=== PATIENT | male | born 1950 | race Caucasian/White ===

== ENCOUNTER 2018-05-26 15:04 | Outpatient (CLI) | payer MEDICARE, BC ==
--- NOTE | 2018-05-26 18:21 | MRI ---
MRI LEFT SHOULDER: 05/26/2018 PROVIDED CLINICAL HISTORY: Left shoulder pain. FINDINGS: There is partial-thickness undersurface tearing involving the anterior distal fibers of the infraspin atus tendon at the footplate. The components of the rotator cuff appear otherwise intact. The longh ead biceps tendon appears intact and normally located. There is conspicuous flattening of the articular portions of the humeral head and glenoid. There is extensive full-thickness articular cartilage absence involving essentially all the glenohumeral artic ular surface. There is a moderate glenohumeral joint effusion. There are multiple small intraarticul ar bodies present, likely reflecting secondary synovial chondromatosis. The glenoid labrum demonstra nikhil extensive degenerative nondisplaced tearing. There is greater than physiologic subacromial/subdeltoid bursal fluid. Acromioclavicular joint osteo arthrosis is noted without significant mass effect upon the subjacent supraspinatus. Rotator cuff mu scular volume appears preserved. No focal concerning regional marrow or muscular signal abnormality is evident. Subcortical cyst-like changes are seen within the anterior greater tuberosity. IMPRESSION: 1. 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 2. Low-grade partial-thickness undersurface tear involving the anterior distal infraspinatus tendon at the footplate. 3. Acromioclavicular joint osteoarthrosis. POS: OFF
== END 2018-05-26 15:05 | disposition home or self-care (01) ==
LOC: MRI 15:04
PROVIDERS: ATTEND Physician Assistant
DX: M25.512 Pain in left shoulder (principal); M19.012 Primary osteoarthritis, left shoulder; M25.412 Effusion, left shoulder; D48.0 Neoplasm of uncertain behavior of bone and articular cartilage; S46.912A Strain of unspecified muscle, fascia and tendon at shoulder and upper arm level, left arm, initial encounter

== ENCOUNTER 2018-06-23 11:11 | Outpatient (CLI) | payer MEDICARE, BC ==
--- NOTE | 2018-06-23 16:43 | RAD ---
TWO VIEWS CHEST: Date: 06-23-18 History: Pre-operative evaluation. Comparison: 07-16-12 FINDINGS: There is partial visualization of a right humeral prosthesis. Cardiac silhouette and pulmonary vascul ature are within normal limits. Linear scarring is again present at each lung base with what appears to be calcified granuloma over the right lung base also seen on prior study. The lungs are otherwise clear. Degenerative changes are present in the spine. Vascular calcifications are seen in the thoraci c aorta. IMPRESSION: 1. Mild bibasilar scarring, no acute cardiopulmonary process. POS: H
== END 2018-06-23 11:12 | disposition home or self-care (01) ==
LOC: RAD 11:11
PROVIDERS: ATTEND Family Medicine
DX: Z01.818 Encounter for other preprocedural examination (principal); J98.4 Other disorders of lung; I10 Essential (primary) hypertension; R35.1 Nocturia
CPT/HCPCS: 36415; 71046; 80053; 80061; 83036; 84443; 84466; 85025; 86803; G0103

== ENCOUNTER 2018-07-17 11:01 | Outpatient (CLI) | payer MEDICARE, BC ==
[2018-07-17 16:24] LABS: #Eosinphils 0.3 thou/uL (0.0-0.7); #Lymphocytes 1.6 thou/uL (1.20-3.40); #Monocytes 0.7 thou/uL (0.11-0.59); #Neutrophils 4.9 thou/uL (1.40-6.50); %Basophils 0.4 % (0.0-1.0); %Eosinophils 3.8 % (0.0-10.0); %Monocytes 9.3 % (0.0-10.0); %Neutrophils 65.6 % (42.0-75.0); Hemoglobin 16.6 g/dL (14.0-18.0); Mean Corpuscular HGB CONC 33.6 g/dL (32.0-36.0); Mean Corpuscular Hemoglobin 30.4 pg (27.0-31.0); Mean Corpuscular Volume 90.5 fL (78.0-98.0); Mean Platelet Volume 7.8 fL (7.4-10.4); Platelet Count 183 thou/uL (130-400); RBC Distribution Width 12.4 % (11.5-14.5); Red Blood Cell (RBC) Count 5.45 mill/uL (4.70-6.10); White Blood Cell (WBC) Count 7.4 thou/uL (4.8-10.8)
[2018-07-17 16:27] LABS: Bilirubin Negative (Negative); Blood, Urine Negative (Negative); Clarity CLEAR (Clear); Glucose, Urine (Dipstick) Negative (Negative); Leukocyte Negative (Negative); Nitrite Negative (Negative); Protein, Urine (Dipstick) Negative (Neg-Trace); Urobilinogen 0.2 mg/dL (0.2-1.0); pH, Urine 6.5 (5.0-9.0)
[2018-07-17 16:30] LABS: Bacteria/HPF None Seen HPF (None Seen); Hyaline Casts/LPF 0-3 HYALINE CAST LPF (0-3 Hyaline); RBC/HPF 0-3 HPF (0-3); Squamous Epithelial None Seen HPF (0-3); WBC/HPF 0-3 HPF (0-3)
[2018-07-17 16:46] LABS: Specific Gravity, Urine 1.045 (1.002-1.036)
[2018-07-17 16:47] LABS: ALT (SGPT) 18 U/L (8-55); AST (SGOT) 18 U/L (5-34); Albumin 4.3 g/dL (3.4-4.8); Alkaline Phosphatase 64 U/L (40-150); Anion Gap 9 mmol/L (10-20); BUN (Urea Nitrogen) 12 mg/dL (8.4-25.7); Bilirubin, Total 0.5 mg/dL (0.2-1.2); Calc. Creatinine Clearance 0 mL/min (70-130); Calcium 9.3 mg/dL (7.8-10.44); Carbon Dioxide 28 mmol/L (23-31); Chloride 107 mmol/L (98-107); Estimated GFR-MDRD 78; Globulin 2.9 g/dL (2.4-3.5); Glucose 90 mg/dL (80-115); Potassium 4.3 mmol/L (3.5-5.1); Protein, Total 7.2 g/dL (5.8-8.1); Sodium 140 mmol/L (136-145)
== END 2018-07-17 11:02 | disposition home or self-care (01) ==
LOC: LABBT 11:01
PROVIDERS: ATTEND Specialist
DX: Z01.812 Encounter for preprocedural laboratory examination (principal); K40.90 Unilateral inguinal hernia, without obstruction or gangrene, not specified as recurrent
CPT/HCPCS: 80053; 81001; 85025; 87086

== ENCOUNTER 2018-07-17 13:13 | Outpatient (CLI) | payer MEDICARE, BC ==
--- NOTE | 2018-07-17 16:29 | CT ---
CT UROGRAM: Date: 07/17/18 HISTORY: 67-year-old male with a history of hematuria. TECHNIQUE: Axial CT imaging at 3 mm intervals from lung bases through pubic symphysis with and without IV contra st using a CT urogram protocol. Coronal and sagittal reformatted imaging obtained. FINDINGS: Incompletely imaged coronary calcification noted. Right basilar granuloma noted. No free intraperitoneal air or fluid. The noncontrast enhanced imaging demonstrates a questionable punctate nonobstructing stone within the mid pole right kidney on axial image 53. There is a nonobstructing stone in the lower pole of the ri ght kidney on image 71 measuring approximately 3.0 mm. No evidence for obstructive uropathy is seen on either side. The prostate gland is heterogeneous and enlarged, herniating into the region of the bladder base. Pro state gland contains dystrophic calcifications and measures at least 5.9 cm in transverse dimension, 4.7 cm in AP dimension, and 5.3 cm in craniocaudal dimension. There are multiple subcentimeter hypodensities within the right lobe of the liver, the majority of wh ich are too small to characterize. The largest such lesion measures 8.0 mm and likely represents a sm all cyst. The spleen, gallbladder, pancreas, and adrenal glands demonstrate no acute findings. Postcontrast imaging of the kidneys demonstrates no solid/enhancing mass lesion on either side. There are a few scattered tiny hypodensities within both kidneys, too small to characterize. There is a nonspecific hypodense lesion measuring 1.3 cm at the inferior aspect of the left renal low er pole, precontrast Hounsfield units of approximately 20, and postcontrast Hounsfield units of appro ximately 30, suggesting minimal enhancement. However, CT examination [facility] the [facility] demonstrates that this lesion is a stable finding. Limited assessment of the bowel demonstrates multifocal diverticulosis of the descending colon and si gmoid colon with no evidence for diverticulitis. Appendix is unremarkable. No evidence for bowel obstruction. There is mild atherosclerotic calcification of the infrarenal abdominal aorta. There is a retroaortic left renal vein. There is no lymphadenopathy noted in the abdomen or pelvis. There is an old anterior wedge compression fracture involving the superior end plate of the L1 verteb ral body. There is anterolisthesis of L5 on S1 on the basis of bilateral L5 pars defects. There is pr ominent degenerative change at L4-5 and L5-S1. No worrisome lytic or blastic bone lesion. Urographic phase imaging demonstrates no focal filling defect involving the intrarenal collecting sys tem on either side. Imaged portions of bilateral ureters appear grossly unremarkable. IMPRESSION: 1. Nonobstructing subcentimeter right renal calculi. 2. Enlarged prostate gland herniating into the bladder base. 3. No evidence for obstructive uropathy on either side. 4. Stable low density lesion emanating from the lower pole of the left kidney. This does not meet cr iteria for a simple cyst and demonstrates mild enhancement. Thus, continued surveillance is advised. Recommend a follow-up renal ultrasound in 6 months to further assess the nonspecific small lesion inv olving the lower pole of the left kidney. 5. Sigmoid and descending colonic diverticulosis without evidence for diverticulitis. 6. Lower lumbar spine degenerative change. Anterolisthesis on the basis of bilateral pars defects no willy at the L5-S1 level. POS: JEFFERY
[2018-07-17] MEDS ORDERED: Iopamidol 370 76% 100 ML VIAL ONE (16:53)
== END 2018-07-17 13:14 | disposition home or self-care (01) ==
LOC: BICCT 13:13
PROVIDERS: ATTEND Specialist
DX: R31.9 Hematuria, unspecified (principal); N20.0 Calculus of kidney; N40.0 Benign prostatic hyperplasia without lower urinary tract symptoms; N28.9 Disorder of kidney and ureter, unspecified; K57.30 Diverticulosis of large intestine without perforation or abscess without bleeding; M47.816 Spondylosis without myelopathy or radiculopathy, lumbar region; M43.17 Spondylolisthesis, lumbosacral region
CPT/HCPCS: 74178; 80053; 81001; 85025; 87086

== ENCOUNTER 2018-07-18 07:45 | Day surgery (SDC) | payer MEDICARE, BC ==
--- NOTE | 2018-07-17 14:01 | HP ---
HISTORY OF PRESENT ILLNESS: Ez Martin is a 67-year-old male patient, has been seen by [facility] planned to have left shoulder surgery on July 28, 2018. In the interim, he has developed a right groin mass and pain. Groin mass is intermittent. He reports nocturia x2, but no hesitancy. No stranguria. He reports 2 days of hematuria. He has an appointment to see Dr. Arnold on July 22 and stated above his left shoulder surgery [facility] consultation scheduled for July 28, 2018. He is bothered by his right groin mass that comes and goes and obviously a hernia. He wants to have his hernia repaired prior to shoulder surgery, so he can convalesce postoperatively after shoulder surgery. The patient has been seen by Dr. San for cardiac clearance prior to shoulder surgery. Dr. San cleared him for surgery. He has had a stress test in November 2017 that was normal. PRIMARY CARE PHYSICIAN: Dr. Layla Leggett. SPINDLE PLUMBER: Dr. San. UROLOGIST: To be seen next week, Dr. Arnold. I have talked to Dr. Arnold and plan is to obtain a CT scan, hematuria triple protocol today and plan robotic right inguinal hernia repair with mesh tomorrow, possible left although no hernia appreciated on the left. PAST MEDICAL HISTORY: Arthritis, GERD well controlled on PPI and sucralfate. PAST SURGICAL HISTORY: Right shoulder in 2009, left leg in 2002, left hand in 2010, dental surgery in 2013, right hand in 2013, EGD and colonoscopy in 2010, umbilical hernia repair with mesh that I performed in August 2015. FAMILY HISTORY: Coronary artery disease, otherwise noncontributory. REVIEW OF SYSTEMS: [place], noncontributory. SOCIAL HISTORY: Tobacco, none. Alcohol, none. The patient is a retired real estate office supervisor. ALLERGIES: NONE. PHYSICAL EXAMINATION: VITAL SIGNS: Weight 180 pounds, 5 feet 7 inches. Blood pressure 143/57, heart rate 58, and temperature 98.2 degrees. HEAD, EARS, EYES, NOSE AND THROAT: Unremarkable. Sclera nonicteric. NEUROLOGIC: Intact. SKIN: Nonjaundiced. LUNGS: Clear to auscultation. CARDIAC: Regular rate and rhythm without gallop. ABDOMEN: Soft, nontender, and nondistended. EXTREMITIES: Unremarkable. No ankle edema. Palpable pedal pulses. On standing, his testicles are normal. Left groin without hernia. Right groin hernia on Valsalva and appreciated asymmetry. Bulge in right groin on standing. ASSESSMENT AND PLAN: 1. Right inguinal hernia. We will plan robotic mesh repair of right, possible left, pending operative findings, although, asymptomatic and clinically on exam, no appreciable left inguinal hernia. Risk of infection, bleeding, reoperation, recurrence of hernia, chronic pain discussed. 2. Hematuria episode. We will start on Flomax daily. We will obtain CT scan triple hematuria protocol today. Appointment with Dr. Arnold in next week. 3. Mild memory loss. 4. Arthritis. 5. Mild gastroesophageal reflux disease, controlled on PPIs and sucralfate. 6. Hypertension. 7. History of cerebrovascular accident. 8. Left shoulder arthritis, status post shoulder surgery. 9. Aortic insufficiency followed by Dr. San, cleared for surgery. Job ID: [id number]
[2018-07-17 15:30] VITALS: BMI 26.6
[2018-07-18] MEDS ORDERED: Ketorolac Tromethamine 30 MG/ML VIAL ONE (08:09)
[2018-07-18] MEDS ORDERED: CEFAZOLIN 2 GM/50 ML BAG ONE (08:09)
[2018-07-18] MEDS ORDERED: Bupivacaine/Epinephrine 0.25% 30 ML VIAL ONE (10:28)
[2018-07-18] MEDS ORDERED: Midazolam HCl 2 mg/2 ml Vial ONE (11:28)
[2018-07-18] MEDS ORDERED: Fentanyl 100 MCG/2 ML VIAL ONE (11:28)
--- NOTE | 2018-07-18 20:12 | OP ---
DATE OF PROCEDURE: 07/18/2018 PREOPERATIVE DIAGNOSIS: Right inguinal hernia. POSTOPERATIVE DIAGNOSIS: Pantaloon right inguinal hernia. PROCEDURE PERFORMED: Robotic laparoscopic repair of pantaloon right inguinal hernia with large 3DMax mesh. ANESTHESIA: General, local of 0.5% Marcaine with epinephrine, 30 mL total volume used. DESCRIPTION OF PROCEDURE: The patient was taken to the operating room, where under general anesthesia Rothman catheter was placed at the beginning of the procedure and removed at the end. Abdomen was clipped of hair, prepared with ChloraPrep, and draped in routine fashion. A robot was docked. After pneumoperitoneum was initiated with a Veress needle placed left of midline supraumbilical and pneumoperitoneum established to 15 mmHg and an 11 mm port was placed. Balloon inflated and balloon port was secured to the abdominal wall. An laparoscope was inserted and bilateral subcostal mid lateral abdominal incision was made, 8 mm port was placed. The robot was docked and positioned and robotic inguinal hernia repair was undertaken. The left groin without evident hernia. Right groin revealed a pantaloon hernia. Incision was made in the peritoneum from the anterior superior iliac spine to the midline developing the peritoneal flap dissecting it medially and laterally and around the cord structures. Inferior epigastric arteries and vessels were identified, kept free of harm. Hernia sac dissected free, reduced into the abdominal cavity leaving at least more than 8 cm of cord structures skeletonized. A 3DMax large mesh was introduced intra-abdominally and secured to the pelvic floor positioning the medial portion over the Elroy's ligament, securing it with interrupted sutures of 2-0 Vicryl. The mesh was secured to the abdominal wall to the patient's right of the inferior epigastric vessels with a 2-0 Vicryl suture and mesh had a good position with good coverage of the cord structures. Good hemostasis noted. Peritoneal flap was closed with continuous suture with #2-0 V-Loc suture. Pneumoperitoneum was reduced. All instruments were removed. All skin incisions were approximated with a subdermal 4-0 Monocryl and [place] glue applied. Job ID: [id number]
== END 2018-07-18 14:45 | disposition home or self-care (01) ==
LOC: SDC 07:45
PROVIDERS: ATTEND Specialist
PROC: 0YU54JZ Supplement Right Inguinal Region with Synthetic Substitute, Percutaneous Endoscopic Approach (ICD-10-PCS; principal; 2018-07-18)
DX: K40.90 Unilateral inguinal hernia, without obstruction or gangrene, not specified as recurrent (principal); K21.9 Gastro-esophageal reflux disease without esophagitis; Z88.8 Allergy status to other drugs, medicaments and biological substances
CPT/HCPCS: C1781; J0131; J1885; J2250; J3010

== ENCOUNTER 2022-10-18 12:27 | Outpatient (CLI) | payer MEDICARE, BC | END 2022-10-18 12:28 | disposition home or self-care (01) | LOC: BICCT 12:27 | PROVIDERS: ATTEND Internal Medicine Cardiovascular Disease | DX: I77.810 Thoracic aortic ectasia (principal) | CPT/HCPCS: 71275 ==

== ENCOUNTER 2024-05-07 16:07 | Outpatient (CLI) | payer MEDICARE, BC ==
[2024-05-07 16:42] LABS: #Basophils Less than 0.03 10x3/uL (0.0-0.2); #Eosinophils Less than 0.03 10x3/uL (0.0-0.7); %Basophils 0.1 % (0.0-1.0); %Eosinophils 0.1 % (0.0-10.0); %Monocytes 7.5 % (0.0-10.0); Hematocrit 46.6 % (42.0-52.0); Hemoglobin 15.4 g/dL (14.0-18.0); Mean Corpuscular Hemoglobin 30.6 pg (27.0-31.0); Mean Corpuscular Volume 92.6 fL (78.0-98.0); Mean Platelet Volume 9.8 fL (7.4-10.4); Platelet Count 166 10x3/uL (130-400); RBC Distribution Width 12.7 % (11.5-14.5); Red Blood Cell (RBC) Count 5.03 mill/uL (4.70-6.10)
[2024-05-07 17:08] LABS: ALT (SGPT) 11 U/L (8-55); AST (SGOT) 18 U/L (5-34); Albumin 3.8 g/dL (3.4-4.8); Alkaline Phosphatase 44 U/L (40-110); Anion Gap 10 mmol/L (10-20); BUN (Urea Nitrogen) 16 mg/dL (8.4-25.7); Bilirubin, Total 0.7 mg/dL (0.2-1.2); Calc. Creatinine Clearance 0 mL/min (70-130); Calcium 8.8 mg/dL (7.8-10.44); Carbon Dioxide 25 mmol/L (23-31); Chloride 107 mmol/L (98-107); Estimated GFR 91; Globulin 2.6 g/dL (2.4-3.5); Glucose 108 mg/dL (83-110); Potassium 3.8 mmol/L (3.5-5.1); Protein, Total 6.4 g/dL (5.8-8.1); Sodium 138 mmol/L (136-145)
== END 2024-05-07 16:08 | disposition home or self-care (01) ==
LOC: LABBT 16:07
PROVIDERS: ATTEND Internal Medicine Cardiovascular Disease
DX: Z01.818 Encounter for other preprocedural examination (principal); I42.0 Dilated cardiomyopathy
CPT/HCPCS: 80053; 85025; 93005; 93010

== ENCOUNTER 2024-05-08 06:12 | Day surgery (SDC) | payer MEDICARE, BC ==
[2024-05-07 16:31] VITALS: BMI 23.7
[2024-05-08] MEDS ORDERED: Verapamil 5 MG/2 ML VIAL ONE (09:01)
[2024-05-08] MEDS ORDERED: Adenosine 6 mg (2 mL) VIAL ONE (09:01)
[2024-05-08] MEDS ORDERED: Heparin 10,000 UNITS/ 10 ML VIAL ONE (09:01)
[2024-05-08] MEDS ORDERED: Nitroglycerin 50 MG/250 ML BOT 250 ML ONE (09:01)
[2024-05-08] MEDS ORDERED: fentaNYL 50 mcg/mL 1 mL Vial ONE (09:32)
[2024-05-08] MEDS ORDERED: Iopamidol 370 76% 100 ML VIAL ONE (09:33)
[2024-05-08] MEDS ORDERED: Midazolam HCl 2 mg/2 ml Vial ONE (09:33)
== END 2024-05-08 14:00 | disposition home or self-care (01) ==
LOC: SDC 06:12
PROVIDERS: ATTEND Internal Medicine Cardiovascular Disease
PROC: 4A023N8 Measurement of Cardiac Sampling and Pressure, Bilateral, Percutaneous Approach (ICD-10-PCS; principal; 2024-05-08)
PROC: B210YZZ Fluoroscopy of Single Coronary Artery using Other Contrast (ICD-10-PCS; 2024-05-08)
DX: I42.0 Dilated cardiomyopathy (principal); I11.0 Hypertensive heart disease with heart failure; I50.30 Unspecified diastolic (congestive) heart failure; I35.1 Nonrheumatic aortic (valve) insufficiency; I25.2 Old myocardial infarction; E78.5 Hyperlipidemia, unspecified; F32.A Depression, unspecified; K21.9 Gastro-esophageal reflux disease without esophagitis; N40.1 Benign prostatic hyperplasia with lower urinary tract symptoms; G40.909 Epilepsy, unspecified, not intractable, without status epilepticus; G47.33 Obstructive sleep apnea (adult) (pediatric); Z96.611 Presence of right artificial shoulder joint; Z96.612 Presence of left artificial shoulder joint; Z86.12 Personal history of poliomyelitis; Z87.891 Personal history of nicotine dependence; Z98.890 Other specified postprocedural states; Z88.8 Allergy status to other drugs, medicaments and biological substances; Z91.011 Allergy to milk products; Z79.82 Long term (current) use of aspirin; Z79.899 Other long term (current) drug therapy
CPT/HCPCS: 93454; C1769 ×2; C1894; J1644; J2250; J3010; 99152; J0153